=== PATIENT | female | born 2000 | race Caucasian/White ===

== ENCOUNTER 2024-05-22 07:43 | Day surgery (SDC) | payer OTHER ==
[2024-05-22] MEDS ORDERED: hydrALAZINE 20 MG/ML VIAL SLOW IVP PRN (09:05)
[2024-05-22] MEDS ORDERED: Promethazine 25 MG TAB PO SCH (09:15)
== END 2024-05-22 09:36 | disposition home health service (06) ==
LOC: CSHLD/OP 07:43
PROVIDERS: ATTEND Obstetrics & Gynecology
DX: O99.891 Other specified diseases and conditions complicating pregnancy (principal); K52.9 Noninfective gastroenteritis and colitis, unspecified; Z3A.25 25 weeks gestation of pregnancy
CPT/HCPCS: 99282; Q0169

== ENCOUNTER 2024-08-25 14:29 | Inpatient (IN) | payer OTHER ==
[~2024-08-25 14:29] MED LIST: Bupivacaine PF 0.5% 30 ML VIAL ONE; ePHEDrine Sulfate 50 MG/10 ML VIAL ONE
[2024-08-25 15:36] LABS: Fetal Membranes Rupture RUPTURE DETECTED (No Rupture)
[2024-08-25] MEDS ORDERED: Ibuprofen 800 MG TAB PO PRN (15:44)
[2024-08-25] MEDS ORDERED: Promethazine HCl 25 MG/ML VIAL IM PRN ×2 (15:44→23:24)
[2024-08-25] MEDS ORDERED: Lidocaine 1% (PF) 30 ML VIAL SC PRN (15:44)
[2024-08-25] MEDS ORDERED: hydrALAZINE 20 MG/ML VIAL SLOW IVP PRN (15:44)
[2024-08-25] MEDS ORDERED: HYDROcodone/Acetaminophen 5/325 mg Tablet PO PRN ×2 (15:44)
[2024-08-25] MEDS ORDERED: Ondansetron PF 4 MG/2 ML Vial IVP PRN (15:44)
[2024-08-25] MEDS ORDERED: fentaNYL 50 mcg/mL 1 mL Vial SLOW IVP PRN (15:44)
[2024-08-25] MEDS ORDERED: Lactated Ringer's 1,000 ML IV SCH (15:45)
[2024-08-25] MEDS ORDERED: Oxytocin 30 units/NS 500 ML 500 ML IV SCH ×3 (15:45)
[2024-08-25 16:32] LABS: Hematocrit 30.6 % (34.9-44.5); Hemoglobin 10.7 g/dL (12.0-15.5); Mean Corpuscular Volume 94.4 fL (81.6-98.3); Mean Platelet Volume 11.1 fL (7.4-10.4); Platelet Count 219 10x3/uL (150-450); Red Blood Cell (RBC) Count 3.24 10x6/uL (3.90-5.03); White Blood Cell (WBC) Count 10.4 10x3/uL (3.5-10.5)
[2024-08-25 17:05] LABS: HBsAg Index 0.18 S/CO (0-0.99); Hep B Surf Ag - L&D Non-Reactive S/CO (NonReactive)
[2024-08-25 17:07] LABS: Syphilis Antibody Nonreactive (Nonreactive); Syphilis Antibody Index 0.06 S/CO (<1.00 Non-Reactive)
[2024-08-25] MEDS ORDERED: diphenhydrAMINE 50 MG/ML VIAL IVP PRN ×2 (23:24)
[2024-08-25] MEDS: fentaNYL/Ropivacaine Epidural 100 ML ONE (23:24)
[2024-08-25] MEDS ORDERED: Lactated Ringer's 500 ML IV PRN ×2 (23:24)
[2024-08-25] MEDS ORDERED: Naloxone HCl 0.4 mg/ml Vial IVP PRN ×4 (23:24)
[2024-08-25] MEDS ORDERED: ePHEDrine Sulfate 50 MG/10 ML VIAL SLOW IVP PRN ×2 (23:24)
[2024-08-25] MEDS ORDERED: Acetaminophen 325 MG TAB PO PRN ×2 (23:24)
[2024-08-25] MEDS ORDERED: Moisturizing Cream (Eucerin) 113 GM JAR TOP PRN ×2 (23:24)
[2024-08-25] MEDS ORDERED: fentaNYL 2 mcg/Ropivacaine 0.2% Epidural 100 ML CADD EPIDURAL SCH (23:30)
[2024-08-25] MEDS ORDERED: Communication Order-Pharmacy FS SCH ×2 (23:30)
[2024-08-26 05:12] VITALS: BMI 31.5
[2024-08-26] MEDS: Promethazine HCl 25 MG/ML VIAL IM PRN (06:43)
[2024-08-26] MEDS ORDERED: Ondansetron PF 4 MG/2 ML Vial IVP PRN ×2 (13:29→13:52)
[2024-08-26] MEDS ORDERED: Milk Of Magnesia 30 ML UDCUP PO PRN (13:29)
[2024-08-26] MEDS ORDERED: Lanolin Ointment 7 GM TUBE TOP PRN (13:29)
[2024-08-26] MEDS ORDERED: Bisacodyl 10 MG SUPP PR PRN (13:29)
[2024-08-26] MEDS ORDERED: HYDROcodone/Acetaminophen 5/325 mg Tablet PO PRN (13:29)
[2024-08-26] MEDS ORDERED: Preparation H Ointment 28 GM TUBE PR PRN (13:29)
[2024-08-26] MEDS ORDERED: diphenhydrAMINE 25 MG CAP PO PRN (13:29)
[2024-08-26] MEDS ORDERED: hydrALAZINE 20 MG/ML VIAL SLOW IVP PRN (13:29)
[2024-08-26] MEDS ORDERED: Oxytocin 30 units/NS 500 ML 500 ML IV SCH (13:29)
[2024-08-26] MEDS: Hepatitis B Vaccine 10 MCG/0.5 ML SYR ONE (14:22)
[2024-08-26] MEDS: Erythromycin Base 0.5% Oint 1 GM TUBE ONE (14:22)
[2024-08-26] MEDS: Phytonadione Neonatal 1 MG/0.5 ML AMP ONE (14:22)
[2024-08-26] MEDS: Boostrix 0.5 ML (Tdap) VIAL (>/=7 yrs of age) IM ONE (14:23)
[2024-08-26] MEDS: Ibuprofen 800 MG TAB PO SCH (15:34)
[2024-08-26] MEDS: Ferrous Sulfate 325 MG TAB PO SCH (15:41)
[2024-08-26] MEDS: Benzocaine-Menthol 82.5 ML CAN TOP PRN (21:32)
[2024-08-26] MEDS: Docusate 100 MG CAP PO SCH (21:32)
[2024-08-27] MEDS: Prenatal Vitamin 1 TAB PO SCH (09:00)
[2024-08-28] MEDS: HYDROcodone/Acetaminophen 5/325 mg Tablet PO PRN (04:17)
[2024-08-28 10:59] VITALS: BP 119/75; TEMP 98.4
== END 2024-08-28 14:55 | disposition home or self-care (01) | DRG 807 ==
LOC: CSHLD/OP 14:29 → CSHLD 15:39 → CSHPP 08-26 13:38
PROVIDERS: ADMIT Obstetrics & Gynecology; ATTEND Obstetrics & Gynecology
PROC: 10E0XZZ Delivery of Products of Conception, External Approach (ICD-10-PCS; principal; 2024-08-26)
PROC: 0KQM0ZZ Repair Perineum Muscle, Open Approach (ICD-10-PCS; 2024-08-26)
PROC: 0UQMXZZ Repair Vulva, External Approach (ICD-10-PCS; 2024-08-26)
DX: O70.1 Second degree perineal laceration during delivery (principal); Z37.0 Single live birth; O76 Abnormality in fetal heart rate and rhythm complicating labor and delivery; Z3A.39 39 weeks gestation of pregnancy; O71.82 Other specified trauma to perineum and vulva
CPT/HCPCS: 36415; 51702; 80053; 82570; 84112; 84156; 85025; 86780; 86850; 86900; 86901; 87340; 99285; J0665; J2550